=== PATIENT | male | born 1960 | race Caucasian/White ===

== ENCOUNTER 2021-10-13 08:00 | Day surgery (SDC) | payer OTHER | END 2021-10-13 11:45 | disposition home or self-care (01) | LOC: AMB-ENDOS 08:00 | PROVIDERS: ATTEND Internal Medicine Gastroenterology | DX: K57.20 Diverticulitis of large intestine with perforation and abscess without bleeding (principal) ==

== ENCOUNTER → 2022-10-19 | Outpatient (CLI) | payer OTHER | END | disposition home or self-care (01) | LOC: NUCLEAR 07:00 | PROVIDERS: ATTEND Urology | DX: I25.10 Atherosclerotic heart disease of native coronary artery without angina pectoris (principal) | CPT/HCPCS: 78452; 93017; A9500; J0153 ==